=== PATIENT | male | born 1995 | race Caucasian/White ===

== ENCOUNTER 2016-11-02 20:39 | Emergency (ER) | payer SELFPAY ==
[~2016-11-02] VITALS: Ht 180.3 cm; Wt 79.8 kg
[~2016-11-02 20:39] MED LIST: AMOXICILLIN500 MG PO; TYLENOL WITH C1 EACH PO
== END 2016-11-02 23:02 | disposition home or self-care (01) ==
LOC: ED 20:39
DX: R10.30 Lower abdominal pain, unspecified (principal); F17.200 Nicotine dependence, unspecified, uncomplicated; Z90.49 Acquired absence of other specified parts of digestive tract
CPT/HCPCS: 80053; 81001; 85025; 99283

== ENCOUNTER 2016-11-26 21:39 | Emergency (ER) | payer SELFPAY ==
[~2016-11-26] VITALS: Ht 180.3 cm; Wt 79.8 kg
== END 2016-11-26 23:10 | disposition short-term general hospital (02) ==
LOC: ED 21:39
DX: N44.00 Torsion of testis, unspecified (principal); F17.200 Nicotine dependence, unspecified, uncomplicated; Z90.49 Acquired absence of other specified parts of digestive tract
CPT/HCPCS: 76870; 81001; 96361; 96374; 96375; 96376; 99285; J1885; J2405; J3010; J7030

== ENCOUNTER 2017-02-04 18:11 | Emergency (ER) | payer SELFPAY ==
[~2017-02-04] VITALS: Ht 180.3 cm; Wt 81.7 kg
[2017-02-04] MEDS ORDERED: NORCO 5-325 TA1 EACH PO (19:38)
== END 2017-02-04 20:22 | disposition home or self-care (01) ==
LOC: ED 18:11
PROC: 2W3DX1Z Immobilization of Left Lower Arm using Splint (ICD-10-PCS; principal; 2017-02-04)
DX: S62.002A Unspecified fracture of navicular [scaphoid] bone of left wrist, initial encounter for closed fracture (principal); S20.212A Contusion of left front wall of thorax, initial encounter; F17.200 Nicotine dependence, unspecified, uncomplicated; V19.9XXA Pedal cyclist (driver) (passenger) injured in unspecified traffic accident, initial encounter; Y93.39 Activity, other involving climbing, rappelling and jumping off; Y92.830 Public park as the place of occurrence of the external cause
CPT/HCPCS: 29125; 71101; 73130; 99283